=== PATIENT | female | born 1980 ===

== ENCOUNTER 2018-03-10 22:45 | Inpatient (IN) | payer SELFPAY, MEDICAID ==
[2018-03-10] MEDS ORDERED: OXYTOCIN 30 UNIT/500 ML PREMIX 500 ML IV (22:48)
[2018-03-10] MEDS: IV RINGERS,LACTATED 1000ML 1,000 ML IV (22:55)
[2018-03-10] MEDS ORDERED: LIDOCAINE 1% PF 30 ML VIAL. INJ (23:00)
[2018-03-10] MEDS ORDERED: OXYTOCIN PREMIX 30 UNIT/500 ML BAG. IV (23:00)
[2018-03-10] MEDS ORDERED: TERBUTALINE 1 MG/ML VIAL. SQ (23:00)
[2018-03-10] MEDS ORDERED: 0.9 % SODIUM CHLORIDE 10 ML DISP.SYRIN. IV (23:00)
[2018-03-10 23:11] LABS: ADD MAN DIFF? NO
[2018-03-10 23:13] LABS: BASO % 1 % (0-3); EOS # 0.8 x10^3/uL (0.0-0.7); EOS % 10 % (0-3); HEMATOCRIT 41.9 % (36.0-47.0); HEMOGLOBIN 14.7 g/dL (12.0-15.5); LYMPH # 2.3 x10^3/uL (1.0-4.8); LYMPH % 29 % (24-48); MEAN CORPUSCULAR HEMOGLOBIN 34 pg (25-35); MEAN CORPUSCULAR HGB CONC 35 g/dL (31-37); MEAN CORPUSCULAR VOLUME 97 fL (79-100); MONO # 0.5 x10^3/uL (0.0-1.1); MONO % 6 % (0-9); NEUT # 4.3 x10^3uL (1.8-7.7); NEUT % 55 % (31-73); PLATELET COUNT 153 x10^3/uL (140-400); RED BLOOD COUNT 4.32 x10^6/uL (3.50-5.40); RED CELL DISTRIBUTION WIDTH 14.3 % (11.5-14.5); WHITE BLOOD COUNT 7.9 x10^3/uL (4.0-11.0)
[2018-03-11] MEDS: OXYTOCIN 30 UNIT/500 ML PREMIX 500 ML IV (00:04)
[2018-03-11] MEDS: IBUPROFEN 800 MG TABLET. PO ×3 (00:57→20:18)
[2018-03-11] MEDS ORDERED: 0.9 % SODIUM CHLORIDE 10 ML DISP.SYRIN. IV (01:00)
[2018-03-11] MEDS ORDERED: diphenhydrAMINE HCL 25 MG CAPSULE PO (01:00)
[2018-03-11] MEDS ORDERED: OXYTOCIN 30 UNIT/500 ML PREMIX 500 ML IV (01:00)
[2018-03-11] MEDS ORDERED: MAG HYDROX/ALUMINUM HYD/SIMETH 30 ML ORAL.SUSP PO (01:00)
[2018-03-11] MEDS ORDERED: ZOLPIDEM 5 MG TABLET. PO (01:00)
[2018-03-11] MEDS ORDERED: ACETAMINOPHEN 325 MG TABLET. PO (01:00)
[2018-03-11] MEDS ORDERED: PHENYLEPH/MINERAL OIL/PETROLAT RECTAL OINTMENT 28GM TUBE. RC (01:00)
[2018-03-11] MEDS ORDERED: BENZOCAINE 20% TOPICAL AEROSOL SPRAY 57GM CAN. TP (01:00)
[2018-03-11] MEDS ORDERED: MMR per PROTOCOL. MC (01:00)
[2018-03-11] MEDS ORDERED: SIMETHICONE 80 MG TAB.CHEW PO (01:00)
[2018-03-11] MEDS ORDERED: HYDROCORTISONE 1% TOPICAL OINTMENT 30GM TUBE. TP (01:00)
[2018-03-11] MEDS ORDERED: MAGNESIUM HYDROXIDE 2,400 MG/30 ML ORAL.SUSP. PO (01:00)
[2018-03-11] MEDS: IV RINGERS,LACTATED 1000ML 1,000 ML IV ×2 (06:55→14:55)
[2018-03-11 07:47] LABS: HEMATOCRIT 36.7 % (36.0-47.0)
[2018-03-11] MEDS: DOCUSATE SODIUM 100 MG CAPSULE. PO (13:06)
[2018-03-11] MEDS: oxyCODONE/APAP 5/325 1 TAB TABLET PO (20:18)
[2018-03-12] MEDS: DOCUSATE SODIUM 100 MG CAPSULE. PO (07:06)
[2018-03-12] MEDS: IBUPROFEN 800 MG TABLET. PO (07:06)
[2018-03-12] MEDS ORDERED: FERROUS SULFATE 325 MG TABLET. PO (08:00)
== END 2018-03-12 13:32 | disposition home or self-care (01) | DRG 775 ==
LOC: 3 SO LND 22:45 → 3 NORTH 03-11 01:10
PROVIDERS: Obstetrics & Gynecology
PROC: 10E0XZZ Delivery of Products of Conception, External Approach (ICD-10-PCS; principal; 2018-03-10)
DX: O62.3 Precipitate labor (principal); Z3A.39 39 weeks gestation of pregnancy; Z37.0 Single live birth
CPT/HCPCS: 36415; 85014; 85025; 86592; 86850; 86900; 86901; J2590